=== PATIENT | female | born 1990 | race Hispanic/Latino ===

== ENCOUNTER 2017-01-02 08:19 | Emergency (ER) | payer OTHER, SELFPAY | END 2017-01-02 08:50 | disposition home or self-care (01) | LOC: BURERS 08:19 | DX: H00.14 Chalazion left upper eyelid (principal) | CPT/HCPCS: 99283 ==

== ENCOUNTER 2022-10-10 18:44 | Emergency (ER) | payer MEDICAID, SELFPAY ==
[2022-10-10] MEDS ORDERED: Boostrix 0.5 ML (Tdap) VIAL (>/=7 yrs of age) ONE (19:33)
== END 2022-10-10 19:43 | disposition home or self-care (01) ==
LOC: BURERS 18:44
DX: S61.012A Laceration without foreign body of left thumb without damage to nail, initial encounter (principal); E03.9 Hypothyroidism, unspecified; Z23 Encounter for immunization; W26.0XXA Contact with knife, initial encounter
CPT/HCPCS: 90471; 90715